=== PATIENT | female | born 1990 | race Two or more races ===

== ENCOUNTER → 2017-06-19 | Day surgery (SDC) | payer OTHER ==
[~2017-06-19] VITALS: Ht 147.3 cm; Wt 58.1 kg
[~2017-06-19] MED LIST: 0.9% Sodium Chloride 1,000 ML IV SCH; LANS15TA3 PO; MULT-908 PO; MULT1CAP33 PO; NORG1TAB29 PO; Sodium Chloride LOK Flush 10 mL Syringe IV PRN; fentaNYL-PF 50 mCg/mL 2 mL Inj IVPUSH PRN
[2017-06-19 15:14] VITALS: BP 150/93; PULSE 80; O2SAT 98
--- NOTE | 2017-06-19 15:51 | PCM.ENDEGD ---
EGD Date of Service: Jun 19, 2017 Physician Cody Scott MD Pre Procedure Diagnosis: Nausea vomiting Post Procedure Dx & Findings: Normal upper GI Procedure Esophagogastroduodenoscopy PROCEDURE IN DETAIL: After proper sedation, Olympus video endoscope was inserted into patient's mouth and esophagus was successfully intubated. Scope introduced esophagus. Esophagus showed normal shiny whitish mucosa consistent with squamous cell component. Z line was intact at 35 cm from the incisors. Scope was advanced to the stomach. Stomach showed normal shiny mucosa with normal appearing rugae folds without any ulcer mass erosion. Cardia fundus body antrum pylorus were all visualized. Retroflexion was done. Stomach was easily inflated and deflatable using air. Scope further advanced to the distal duodenum. Duodenum revealed normal villous structures with normal appearing folds without any mass ulcer erosion. Impression Normal upper GI Presedation Assessment Risks and Benefits Informed consent was obtained from the patient after all risks and benefits including but not limited to drug reaction, infection, pain, bleeding, perforation, as well as alternatives were discussed. Patient monitoring Continuous pulse oximetry, cardiac monitoring, blood pressure monitoring, IV access, and oxygen at 2L per nasal cannula. Periprocedural Fentanyl: Fentanyl 200mcg Incrementally Midazolam: Midazolam 10mg Incrementally Diphenhydramine: Diphenhydramine 50 mg IV Complications There were no periprocedural complications identified. Post Procedure Plan Post Procedure Recommendations 1. Restrict activities today. 2. Resume normal activities in the morning. 3. Resume medications. 4. GERD behavioral modification: - Avoid fatty, acidic, spicy, large meals - Do not lie down after meals - Do not eat or drink anything for at least 2 1/2 hours before going to bed at night - Discontinue tobacco and alcohol - Decrease or avoid caffeine - Avoid chocolate and mints - Decrease weight - Avoid aspirin and non steroidal anti-inflammatory agents (NSAID) such as Aleve, Advil, Mobic, Naproxen, Ibuprofen, etc 5. Add proton pump inhibitor. Take 30 minutes before 1st meal of the day. 6. Patient informed of normal post procedure side effects as bloating, drowsiness, blood streaking in the stool 7. If gastric biopsy reveal H.pylori, continue with appropriate treatment 8. If small bowel biopsy reveals celiac, continue with appropriate treatment 9. Please don't hesitate to call me with any questions Cody Scott MD Jun 19, 2017 15:51
--- NOTE | 2017-06-19 16:09 | PCM.ENDCOL ---
Colonoscopy Date of Service: Jun 19, 2017 Physician Cody Scott MD Pre Procedure Diagnosis: Blood in the stools persistent despite treatment Post Procedure Dx & Findings: Hemorrhoids Procedure Colonoscopy PROCEDURE IN DETAIL: Require anesthesia rescue Prep adequate Withdrawal time 7 minutes After unremarkable rectal examination the Olympus video colonoscope was inserted patient's anal canal and was advanced to cecum. Landmarks were identified including the ileocecal valve and appendiceal orifice. Scope was withdrawn systematically. Visualized colonic mucosa showed healthy shiny mucosa with normal healthy-appearing vasculature. In the rectum retroflexion was done which showed hemorrhoids. Anal canal was inspected carefully on the way out and hemorrhoids noted. Impression Hemorrhoids Recommendation Follow up in GI clinic with [facility] Presedation Assessment Risks and Benefits Informed consent was obtained from the patient after all risks and benefits including but not limited to drug reaction, infection, pain, bleeding, perforation, as well as alternatives were discussed. Patient monitoring Continuous pulse oximetry, cardiac monitoring, blood pressure monitoring, IV access, and oxygen at 2L per nasal cannula. Complications There were no periprocedural complications identified. Post Procedure Plan Post Procedure Recommendations 1. Restrict activities today. 2. Resume normal activities in the morning. 3. Resume medications. 4. Patient informed of normal post procedure side effects as bloating, drowsiness, blood streaking in the stool. 5. average risk CRCS. If colon polyps come back as: -Hyperplastic- can repeat colonoscopy in 10 years -Tubular adenoma- repeat colonoscopy in 5 years -Tubulovillous/villous adenoma- repeat colonoscopy in 3 years -If any dysplasia- return to clinic as soon as possible 6. Please don't hesitate to call me with any questions. Cody Scott MD Jun 19, 2017 16:09
[2017-06-19 16:12] VITALS: BP 99/62; PULSE 81; RESP 16; O2SAT 99
[2017-06-19 16:32] VITALS: BP 146/86; PULSE 128; RESP 16; O2SAT 100
[2017-06-19 16:36] VITALS: BP 154/78; PULSE 109; RESP 16; O2SAT 100
== END | disposition home or self-care (01) ==
LOC: END 00:57
PROVIDERS: ATTEND Internal Medicine
DX: K92.1 Melena (principal); K64.8 Other hemorrhoids; R19.7 Diarrhea, unspecified; K21.9 Gastro-esophageal reflux disease without esophagitis
CPT/HCPCS: 43235; 45378; 99153; G0500; J1200; J2250; J3010; J7030